=== PATIENT | female | born 1960 | race Caucasian/White ===

== ENCOUNTER 2018-08-05 21:25 | Emergency (ER) | payer BC, OTHER ==
--- NOTE | 2018-08-05 21:52 | ED Physician Documentation ---
General Adult - HISTORIAN Historian: patient - HPI Stated Complaint: high blood pressure Chief Complaint: General Adult Onset: other (she has been fighting for a few weeks ) Timing: still present Severity: mild Further Comments: yes (She states she has been with her PCP changing meds on her hypertension. She did check the b/p tonight and she notes she was scared so she did come in to the ER. Denies any chest pain or weakness. She did just take her evening b/p med right before coming to the ER) - ROS CONST: no problems CVS/RESP: denies: chest pain, shortness of breath GI/: none MS/SKIN/LYMPH: none NEURO/PSYCH: denies: headache - PAST HX Past History: hypertension Immunizations: UTD Allergies/Adverse Reactions: Allergies Allergy/AdvReac Type Severity Reaction Status Date / Time clindamycin AdvReac Abdominal Verified 08/06/18 00:20 Pain Home Medications: Ambulatory Orders Medication Instructions Recorded Atorvastatin Calcium 10 mg PO D 08/06/18 Lisinopril/Hydrochlorothiazide 1 tab PO D 08/06/18 [Zestoretic] Metoprolol Succinate [Toprol XL] 100 mg PO D 08/06/18 - SOCIAL HX Smoking History: non-smoker Alcohol Use: none Drug Use: none - FAMILY HX Family History: No - REVIEWED ASSESSMENTS Nursing Assessment Reviewed: Yes Vitals Reviewed: Yes Progress - Progress Progress: 2215: b/p is improved no current chest pain or shortness of air. DG 2220: Discussed meds and times . She had just taken her b/p med 30 min prior to coming to the ER. DG General Adult Physical Exam - PHYSICAL EXAM GENERAL APPEARANCE: no distress EENT: eye inspection normal, ENT inspection normal, pharynx normal, no signs of dehydration, [id number] NECK: normal inspection RESPIRATORY: no resp distress, chest non-tender, breath sounds normal CVS: reg rate & rhythm, heart sounds normal, equal pulses, no murmur ABDOMEN: soft, no distension SKIN: warm/dry, normal color EXTREMITIES: non-tender, normal range of motion, no evidence of injury, no edema NEURO: oriented X3, CN's nml as tested, motor nml, sensation nml, mood/affect nml Discharge Clincal Impression: Hypertension Qualifiers: Hypertension type: unspecified Qualified Code(s): I10 - Essential (primary) hypertension Referrals: Nestor Cardona MD [Primary Care Provider] - 2 Days Comments: 1. Continue meds as prescribed 2. Return to PCP 2-4 days 3. Return to ER for any concerns Condition: Stable Disposition: 01 HOME, SELF-CARE Decision to Admit: NO Date of Decison to Admit: 08/05/18 Decision Time: 22:22
[2018-08-06 00:35] VITALS: BP 158/71
== END 2018-08-05 22:34 | disposition home or self-care (01) ==
LOC: ED 21:25
DX: I10 Essential (primary) hypertension (principal)
CPT/HCPCS: 99281